=== PATIENT | male | born 1975 | race Caucasian/White ===

== ENCOUNTER 2020-02-16 12:36 | Day surgery (SDC) | payer OTHER ==
[~2020-02-16] VITALS: Ht 182.9 cm; Wt 104.0 kg
[2020-02-16 14:26] LABS: HEMATOCRIT 53.3 % (39.0-50.0); HEMOGLOBIN 18.3 g/dl (14.0-18.0); IMMATURE GRANULOCYTES 0.3 % (0.0-5.0); MEAN CELL VOLUME 89.6 fL CALC (80.0-100.0); MEAN CORPUSCULAR HGB 30.8 pG CALC (26.0-32.0); MEAN CORPUSCULAR HGB CONC 34.3 g/dL CAL (32.0-36.0); NEUT# 6.98 thou/uL (1.82-7.42); RED BLOOD COUNT 5.95 mill/uL (4.70-6.10); RED CELL DISTRI WIDTH 12.3 % (11.5-15.5)
[2020-02-16 14:45] LABS: ALBUMIN 4.6 g/dL (3.2-5.0); ALKALINE PHOSPHATASE 75 u/l (38-126); ANION GAP 13 (6-22 (CALC)); BUN 15 mg/dL (9-20); BUN/CREATININE RATIO 17 (12-20 (CALC)); CARBON DIOXIDE 28 mmol/l (22-30); CHLORIDE 102 mmol/l (95-108); CREATININE 0.9 mg/dL (0.7-1.3); GFR > 60 ML/MIN (>=60 (CALC)); GFR FOR AFR.AMER. > 60 ML/MIN (>=60 (CALC)); POTASSIUM 4.1 mmol/l (3.5-5.1); SGOT/AST 37 u/l (17-59); SODIUM 139 mmol/l (137-146); TOTAL PROTEIN 7.6 g/dL (6.3-8.2)
[2020-02-16 14:51] LABS: ACT PARTIAL THROMBO TIME 25.2 SECONDS (20.0-32.5); INTERNATIONAL NORMALIZED RATIO 1.1 RATIO (0.7-1.3); PROTHROMBIN TIME 10.7 SECONDS (9.0-12.5)
[2020-02-16 14:53] LABS: BILIRUBIN, TOTAL 0.6 mg/dL (0.0-1.4)
[2020-02-16] MEDS ORDERED: DOXYCYCL HYC100 MG PO (18:40)
[2020-02-16] MEDS ORDERED: PERCOCET 10/31 COMBO PO (18:40)
[2020-02-16 18:58] VITALS: BP 138/88
== END 2020-02-16 19:10 | disposition home or self-care (01) | DRG 505 ==
LOC: ED 12:36 → ED-I 15:35 → ED 15:47 → ORM 15:48
PROVIDERS: Student in an Organized Health Care Education/Training Program; ATTEND Student in an Organized Health Care Education/Training Program
PROC: 0Y6P0Z3 Detachment at Right 1st Toe, Low, Open Approach (ICD-10-PCS; principal; 2020-02-16)
DX: S92.421B Displaced fracture of distal phalanx of right great toe, initial encounter for open fracture (principal); W29.3XXA Contact with powered garden and outdoor hand tools and machinery, initial encounter; Y92.009 Unspecified place in unspecified non-institutional (private) residence as the place of occurrence of the external cause; Z20.828 Contact with and (suspected) exposure to other viral communicable diseases